=== PATIENT | male | born 1980 | race Caucasian/White ===

== ENCOUNTER 2017-03-25 09:25 | Emergency (ER) | payer OTHER ==
[~2017-03-25] VITALS: Ht 182.8 cm; Wt 84.8 kg
[~2017-03-25 09:25] MED LIST: ADDERALL5 MG PO; CLINDAMYCIN HC300 MG PO; KEFLEX500 MG PO; MOTRIN800 MG PO; VICODIN ES 7501 TAB PO
== END 2017-03-25 10:47 | disposition home or self-care (01) ==
LOC: ED 09:25
DX: S92.335A Nondisplaced fracture of third metatarsal bone, left foot, initial encounter for closed fracture (principal); F17.200 Nicotine dependence, unspecified, uncomplicated; Z79.899 Other long term (current) drug therapy; X58.XXXA Exposure to other specified factors, initial encounter; Y93.9 Activity, unspecified; Y92.89 Other specified places as the place of occurrence of the external cause; Y99.9 Unspecified external cause status

== ENCOUNTER 2017-07-11 15:39 | Emergency (ER) | payer OTHER ==
[~2017-07-11] VITALS: Wt 81.6 kg
[2017-07-11] MEDS ORDERED: Peridex 473 ML473 ML PO (16:25)
[2017-07-11] MEDS ORDERED: PENICILLIN VK500 MG PO (16:25)
[2017-07-11] MEDS ORDERED: NAPROSYN500 MG PO (16:25)
== END 2017-07-11 16:32 | disposition home or self-care (01) ==
LOC: ED 15:39
DX: K02.9 Dental caries, unspecified (principal); R03.0 Elevated blood-pressure reading, without diagnosis of hypertension; F17.200 Nicotine dependence, unspecified, uncomplicated; F10.10 Alcohol abuse, uncomplicated; Z79.899 Other long term (current) drug therapy

== ENCOUNTER 2019-07-26 13:53 | Emergency (ER) | payer OTHER ==
[~2019-07-26] VITALS: Ht 182.8 cm; Wt 83.9 kg
[~2019-07-26 13:53] MED LIST changes: +NAPROSYN500 MG PO; +PENICILLIN VK500 MG PO; +Peridex 473 ML473 ML PO
[2019-07-26] MEDS ORDERED: CEPHALEXIN500 M1 PO (14:48)
== END 2019-07-26 15:00 | disposition home or self-care (01) ==
LOC: ED 13:53
DX: S61.412A Laceration without foreign body of left hand, initial encounter (principal); I10 Essential (primary) hypertension; Z79.899 Other long term (current) drug therapy; W31.89XA Contact with other specified machinery, initial encounter; Y93.89 Activity, other specified; Y92.89 Other specified places as the place of occurrence of the external cause; Y99.8 Other external cause status

== ENCOUNTER 2020-08-14 09:25 | Emergency (ER) | payer OTHER ==
[~2020-08-14] VITALS: Ht 182.8 cm; Wt 77.1 kg
[~2020-08-14 09:25] MED LIST changes: +CEPHALEXIN500 M1 PO
[2020-08-14] MEDS ORDERED: IBUPROFEN600 MG PO (09:47)
== END 2020-08-14 10:05 | disposition home or self-care (01) ==
LOC: ED 09:25
DX: R51.9 Headache, unspecified (principal); H57.11 Ocular pain, right eye; Z79.899 Other long term (current) drug therapy